=== PATIENT | male | born 1975 ===

== ENCOUNTER 2016-07-23 02:08 | Emergency (ER) | payer SELFPAY ==
[2016-07-23 02:19] VITALS: BP 128/82; PULSE 106; RESP 16; TEMP 99.4; O2SAT 98
[2016-07-23] MEDS ORDERED: Sodium Chloride 0.9% 1,000 ML IV STA (02:44)
--- NOTE | 2016-07-23 03:05 | CT ---
EXAM: CT Head Without Intravenous Contrast. CLINICAL HISTORY: 41 years old, male; Pain; Headache TECHNIQUE: Axial computed tomography images of the head/brain without intravenous contrast. This CT exam was performed using one or more of the following dose reduction techniques: automated exposure control, adjustment of the mA and/or kV according to patient size, and/or use of iterative reconstruction technique. Coronal and sagittal reformatted images were created and reviewed. COMPARISON: No relevant prior studies available. FINDINGS: Brain: No intracranial hemorrhage. No mass. No definite edema. Ventricles: No hydrocephalus. Bones/joints: No acute fracture. Soft tissues: Unremarkable. Sinuses: Scattered minimal mucosal thickening. Mastoid air cells: No mastoid effusion. Orbits: Unremarkable as visualized. IMPRESSION: 1. No acute intracranial abnormality. 2. Incidental/non-acute findings are described above.
[2016-07-23 03:23] LABS: BASO % 0.2 % (0.0-2.0); EOS % 0.1 % (0.0-4.0); HEMATOCRIT 40.7 % (35.0-51.0); LYMPH # 0.9 K/uL (1.0-4.3); LYMPH % 7.9 % (20.0-40.0); MEAN CELL VOLUME 84.2 fl (80.0-94.0); MEAN CORPUSCULAR HEMOGLOBIN 29.7 pg (27.0-31.0); MEAN CORPUSCULAR HGB CONC 35.2 g/dL (33.0-37.0); MEAN PLATELET VOLUME 8.3 fl (7.2-11.7); MONO # 0.9 K/uL (0.0-0.8); MONO % 7.9 % (0.0-10.0); NEUT # 9.1 K/uL (1.8-7.0); NEUT % 83.9 % (50.0-75.0); PLATELET COUNT 255 K/uL (130-400); RED CELL DISTRIBUTION WIDTH 12.6 % (11.5-14.5); WHITE BLOOD COUNT 10.9 K/uL (4.8-10.8)
[2016-07-23 03:26] LABS: CHLORIDE 100 mmol/L (98-107); POTASSIUM 4.3 MMOL/L (3.6-5.0); SODIUM 137 mmol/l (132-148)
[2016-07-23 03:28] LABS: ALB/GLOB RATIO 1.1 (1.0-2.1); ALKALINE PHOSPHATASE 94 U/L (38-126); ALT/SGPT 34 U/L (21-72); AST/SGOT 20 U/L (17-59); BILIRUBIN,TOTAL 0.8 mg/dl (0.2-1.3); BLOOD UREA NITROGEN 12 mg/dl (9-20); CARBON DIOXIDE 27 mmol/L (22-30); GFR AFRICAN-AMERICAN > 60; TOTAL PROTEIN 8.2 G/DL (6.3-8.2)
[2016-07-23 03:29] LABS: CALCIUM 9.2 mg/dL (8.4-10.2); GLUCOSE,RANDOM 113 mg/dL (75-110)
--- NOTE | 2016-07-23 03:44 | ED PDOC ---
HPI: Headache Time Seen by Provider: 07/23/16 02:17 Chief Complaint (Nursing): Dizziness/Lightheaded Chief Complaint (Provider): headache History Per: Patient History/Exam Limitations: no limitations Current Symptoms Are (Timing): Still Present Severity: Moderate Preceeding Symptoms: denies: Visual Disturbances, Known Migraine Symptoms Associated Symptoms: Nausea, Vomiting. denies: Photophobia, Blurred Vision, Extremity Weakness Additional History Per: Patient Additional Complaint(s): 41 m with no medical problems c/o headache radiating to back of neck x3. no fever/vomiting/diarrhea. no history of headahce. no neck pain no fever.s Past Medical History Reviewed: Historical Data, Nursing Documentation, Vital Signs Vital Signs: Last Vital Signs Temp 99.4 F 07/23/16 02:16 Pulse 106 H 07/23/16 02:16 Resp 16 07/23/16 02:16 BP 128/82 07/23/16 02:16 Pulse Ox 98 07/23/16 02:16 - Medical History PMH: No Chronic Diseases - Surgical History Surgical History: No Surg Hx - Family History Family History: States: No Known Family Hx - Social History Current smoker - smoking cessation education provided: No Ex-Smoker (has not smoked in the last 12 months): Yes Alcohol: Occasional Drugs: Denies - Home Medications Home Medications: Ambulatory Orders Medication Instructions Recorded Ibuprofen [Motrin] 600 mg PO Q6H PRN #20 tab 07/23/16 - Allergies Allergies/Adverse Reactions: Allergies Allergy/AdvReac Type Severity Reaction Status Date / Time No Known Allergies Allergy Verified 07/23/16 02:19 Review of Systems ROS Statement: Except As Marked, All Systems Reviewed And Found Negative Neurological: Positive for: Headache. Negative for: Weakness, Numbness, Incoordination, Change in Speech, Confusion, Seizures, Altered Mental Status, Dizziness Physical Exam - Reviewed Nursing Documentation Reviewed: Yes Vital Signs Reviewed: Yes - Physical Exam Appears: Positive for: Well, Non-toxic, No Acute Distress Head Exam: Positive for: ATRAUMATIC, NORMAL INSPECTION, NORMOCEPHALIC Skin: Positive for: Normal Color, Warm, DRY Eye Exam: Positive for: EOMI, Normal appearance, PERRL ENT: Positive for: Normal ENT Inspection Neck: Positive for: Normal, Painless ROM, Supple. Negative for: Limited ROM Cardiovascular/Chest: Positive for: Regular Rate, Rhythm Respiratory: Positive for: CNT, Normal Breath Sounds Gastrointestinal/Abdominal: Positive for: Normal Exam, Bowel Sounds, Soft Back: Positive for: Normal Inspection Extremity: Positive for: Normal ROM Neurologic/Psych: Positive for: Alert, nursing assoc II-XII, Oriented, Gait (stable). Negative for: Motor/Sensory Deficits, Aphasia, Facial Droop - Laboratory Results Result Diagrams: 07/23/16 03:13 07/23/16 03:13 - ECG O2 Sat by Pulse Oximetry: 98 Medical Decision Making Medical Decision Making: headache no fever or associated symptoms CT head- no acute findings labs reviewed pt improved w toradol. reglan given as well. iv fluids and zofran as well pt states headache resolved. recommended that pt follow up with neurology for further workup for headaches. Disposition - Clinical Impression Clinical Impression: Headache - Patient ED Disposition Is Patient to be Admitted: No Counseled Patient/Family Regarding: Studies Performed, Diagnosis, Need For Followup - Disposition Referrals: Mark Cameron MD [Medical Doctor] - Disposition: Routine/Home Disposition Time: 04:05 Condition: GOOD Additional Instructions: follow up with your primary doctor in 1-2 days. referral also provided for neurologist for further testing. return to the ED with any worsening or concerning symptos. Prescriptions: Ibuprofen [Motrin] 600 mg PO Q6H PRN #20 tab PRN Reason: Pain, Moderate (4-7) Instructions: Acute Headache (ED) Print Language: [place]
[2016-07-23 05:41] LABS: BASOPHIL 1 % (0-2); NEUTROPHIL 76 % (42-75); REACTIVE LYMPHOCYTES 2 % (0-0); TOTAL CELLS COUNTED 100
[2016-07-23 05:42] LABS: LARGE PLATELETS PRESENT
== END 2016-07-23 05:14 | disposition home or self-care (01) ==
LOC: H.ER 02:08
DX: R51 Headache (principal); R42 Dizziness and giddiness; Z87.891 Personal history of nicotine dependence
CPT/HCPCS: 70450; 80053; 85025; 96374; 99282; J1885; J2405; J2765; J7040

== ENCOUNTER 2016-08-14 09:14 | Emergency (ER) | payer OTHER ==
[2016-08-14] MEDS ORDERED: Sodium Chloride 0.9% 1,000 ML IV STA (10:00)
--- NOTE | 2016-08-14 10:07 | ED PDOC ---
HPI: Headache Time Seen by Provider: 08/14/16 09:34 Chief Complaint (Nursing): Dizziness/Lightheaded Chief Complaint (Provider): Dizziness/Lightheaded History Per: Patient History/Exam Limitations: no limitations Onset/Duration Of Symptoms: Days Current Symptoms Are (Timing): Still Present Severity: Moderate Quality: "Pain" Preceeding Symptoms: None Additional Complaint(s): Patient is a 41 year old male who presents to ED for evaluation of headache with dizziness and vomiting for 4 days. Patient states similar symptoms intermittently for 1 month, evaluated in ED and prescribed Meclazine. Patient also notes that he suffered a head injury 3 months ago. Last took Motrin yesterday, no medication today. Patient notes symptoms worsened with walking and head movement Past Medical History Reviewed: Historical Data, Nursing Documentation, Vital Signs Vital Signs: Last Vital Signs Temp 98 F 08/14/16 09:40 Pulse 65 08/14/16 09:40 Resp 18 08/14/16 09:40 BP 116/79 08/14/16 09:40 Pulse Ox 99 08/14/16 09:40 - Medical History PMH: No Chronic Diseases - Surgical History Surgical History: Appendectomy - Family History Family History: States: No Known Family Hx - Living Arrangements Living Arrangements: With Family - Home Medications Home Medications: Ambulatory Orders Medication Instructions Recorded Ibuprofen [Motrin] 600 mg PO Q6H PRN #20 tab 07/23/16 Ibuprofen [Motrin] 600 mg PO Q6 PRN #20 tab 08/14/16 Meclizine [Meclizine*] 25 mg PO Q6 PRN #15 tab 08/14/16 - Allergies Allergies/Adverse Reactions: Allergies Allergy/AdvReac Type Severity Reaction Status Date / Time No Known Allergies Allergy Verified 08/14/16 09:39 Review of Systems ROS Statement: Except As Marked, All Systems Reviewed And Found Negative Constitutional: Negative for: Fever, Chills, Weakness Eyes: Negative for: Vision Change Cardiovascular: Negative for: Chest Pain Respiratory: Negative for: Shortness of Breath Gastrointestinal: Positive for: Nausea, Vomiting. Negative for: Abdominal Pain Musculoskeletal: Negative for: Neck Pain Neurological: Positive for: Headache, Dizziness. Negative for: Weakness, Numbness, Change in Speech Physical Exam - Reviewed Nursing Documentation Reviewed: Yes Vital Signs Reviewed: Yes - Physical Exam Appears: Positive for: Non-toxic, No Acute Distress Head Exam: Positive for: ATRAUMATIC Skin: Positive for: Normal Color, Warm Eye Exam: Positive for: Normal appearance, EOMI, PERRL. Negative for: Nystagmus Neck: Positive for: Normal, Painless ROM Cardiovascular/Chest: Positive for: Regular Rate, Rhythm. Negative for: Murmur Respiratory: Positive for: Normal Breath Sounds. Negative for: Respiratory Distress Back: Positive for: Normal Inspection Extremity: Positive for: Normal ROM. Negative for: Pedal Edema, Calf Tenderness Neurologic/Psych: Positive for: Alert, Oriented, Gait (steady) - Laboratory Results Result Diagrams: 08/14/16 11:18 08/14/16 11:18 - ECG O2 Sat by Pulse Oximetry: 99 (RA) Pulse Ox Interpretation: Normal - Progress Re-evaluation Time: 13:00 Condition: Re-examined, Improved Medical Decision Making Medical Decision Making: Time: 954 Initial impression: Concussion syndrome, Migraine, Tension headache, Vertigo associated with a headache Initial plan: -- CT-head -- EKG -- BMP -- CBC -- Troponin -- NSF, Reglan, Toradol and Antivert Time: 1200 CT head results reviewed Impression: Normal CT of the head Scribe Attestation: Documented by Latesha Rodriguez acting as a scribe for Thomas Vaughan MD MD Scribe Attestation: All medical record entries made by the Scribe were at my direction and personally dictated by me. I have reviewed the chart and agree that the record accurately reflects my personal performance of the history, physical exam, medical decision making, and the department course for this patient. I have also personally directed, reviewed, and agree with the discharge instructions and disposition. Disposition - Clinical Impression Clinical Impression: Dizziness, Headache - Patient ED Disposition Is Patient to be Admitted: No Doctor Will See Patient In The: Office Counseled Patient/Family Regarding: Studies Performed, Diagnosis, Need For Followup - Disposition Referrals: [facility] [Outside] Disposition: Routine/Home Disposition Time: 13:29 Condition: GOOD Additional Instructions: Follow up with your PCP in 2-3 days. Prescriptions: Meclizine [Meclizine*] 25 mg PO Q6 PRN #15 tab PRN Reason: Dizziness Ibuprofen [Motrin] 600 mg PO Q6 PRN #20 tab PRN Reason: Headache Instructions: Dizziness (ED), General Headache (ED)
--- NOTE | 2016-08-14 10:46 | CT ---
PROCEDURE: CT HEAD WITHOUT CONTRAST. HISTORY: headache COMPARISON: 07/23/2016 TECHNIQUE: Axial computed tomography images were obtained through the head/brain without intravenous contrast. Radiation dose: Total exam DLP = 875 mGy-cm. This CT exam was performed using one or more of the following dose reduction techniques: Automated exposure control, adjustment of the mA and/or kV according to patient size, and/or use of iterative reconstruction technique. FINDINGS: HEMORRHAGE: No intracranial hemorrhage. BRAIN: No mass effect or edema. No atrophy or chronic microvascular ischemic changes. VENTRICLES: Unremarkable. No hydrocephalus. CALVARIUM: Unremarkable. PARANASAL SINUSES: Unremarkable as visualized. No significant inflammatory changes. MASTOID AIR CELLS: Unremarkable as visualized. No inflammatory changes. OTHER FINDINGS: None. IMPRESSION: Normal CT of the Head.
[2016-08-14 11:27] LABS: BASO % 0.6 % (0.0-2.0); EOS # 0.2 K/uL (0.0-0.7); EOS % 3.2 % (0.0-4.0); HEMATOCRIT 40.1 % (35.0-51.0); LYMPH # 1.7 K/uL (1.0-4.3); LYMPH % 28.7 % (20.0-40.0); MEAN CORPUSCULAR HGB CONC 34.1 g/dL (33.0-37.0); MEAN PLATELET VOLUME 9.1 fl (7.2-11.7); MONO # 0.5 K/uL (0.0-0.8); MONO % 8.5 % (0.0-10.0); NEUT # 3.5 K/uL (1.8-7.0); NRBC % 0.1 % (0.0-0.0); RED CELL DISTRIBUTION WIDTH 12.6 % (11.5-14.5)
[2016-08-14 11:55] LABS: CHLORIDE 102 mmol/L (98-107); SODIUM 140 mmol/l (132-148)
[2016-08-14 11:56] LABS: POTASSIUM 4.3 MMOL/L (3.6-5.0)
[2016-08-14 11:58] LABS: CARBON DIOXIDE 26 mmol/L (22-30); GFR AFRICAN-AMERICAN > 60
[2016-08-14 11:59] LABS: BLOOD UREA NITROGEN 16 mg/dl (9-20); CALCIUM 9.3 mg/dL (8.4-10.2); GLUCOSE,RANDOM 94 mg/dL (75-110)
[2016-08-14 13:32] VITALS: O2SAT 99
[2016-08-14 13:53] VITALS: BP 128/78; PULSE 78; RESP 19; TEMP 97.8
--- NOTE | 2016-08-14 19:02 | CARD ---
APPROVED REPORT EKG Measurement Heart [id number] [id number] <Conclusion> Sinus bradycardia Incomplete right bundle branch block Borderline ECG
== END 2016-08-14 13:53 | disposition home or self-care (01) ==
LOC: H.ER 09:14
DX: R42 Dizziness and giddiness (principal); R51 Headache; R11.10 Vomiting, unspecified

== ENCOUNTER 2017-07-30 10:40 | Emergency (ER) | payer OTHER, SELFPAY ==
[2017-07-30 11:28] VITALS: BP 127/86; PULSE 74; RESP 18; TEMP 98.2; O2SAT 99
[2017-07-30] MEDS ORDERED: Tdap Vaccine 0.5 ml Vial (10-64 yrs) IM ONE ×2 (12:31→12:35)
--- NOTE | 2017-07-30 12:33 | ED PDOC ---
Upper Extremity Pain/Injury Time Seen by Provider: 07/30/17 12:13 Chief Complaint (Nursing): Finger,Hand,&Wrist Chief Complaint (Provider): Finger injury History Per: Patient History/Exam Limitations: no limitations Onset/Duration Of Symptoms: Hrs (x1) Current Symptoms Are (Timing): Still Present Additional Complaint(s): 42 year old right hand dominant male presents to the Emergency Department complaining of a left finger injury, sustained 1 hour prior to arrival. Patient states he accidentally jammed his finger in a door. Tetanus is not up to date. Patient denies taking any medications for pain relief prior to arrival. He denies any numbness or tingling to affected area. PMD: None Past Medical History Reviewed: Historical Data, Nursing Documentation, Vital Signs Vital Signs: Last Vital Signs Temp 98.2 F 07/30/17 11:28 Pulse 74 07/30/17 11:28 Resp 18 07/30/17 11:28 BP 127/86 07/30/17 11:28 Pulse Ox 99 07/30/17 11:28 - Medical History PMH: No Chronic Diseases - Surgical History Surgical History: Appendectomy - Family History Family History: States: No Known Family Hx - Living Arrangements Living Arrangements: With Family - Social History Current smoker - smoking cessation education provided: No Alcohol: None Drugs: Denies - Immunization History Hx Tetanus Toxoid Vaccination: No (not sure of last booster) - Home Medications Home Medications: Ambulatory Orders Medication Instructions Recorded Ibuprofen [Motrin] 600 mg PO Q6H PRN #20 tab 07/23/16 Ibuprofen [Motrin] 600 mg PO Q6 PRN #20 tab 08/14/16 Meclizine [Meclizine*] 25 mg PO Q6 PRN #15 tab 08/14/16 Ibuprofen [Motrin] 600 mg PO Q6 PRN #15 tab 07/30/17 - Allergies Allergies/Adverse Reactions: Allergies Allergy/AdvReac Type Severity Reaction Status Date / Time No Known Allergies Allergy Verified 08/14/16 09:39 Review of Systems ROS Statement: Except As Marked, All Systems Reviewed And Found Negative Musculoskeletal: Positive for: Other (injury to left index finger) Physical Exam - Reviewed Nursing Documentation Reviewed: Yes Vital Signs Reviewed: Yes - Physical Exam Appears: Positive for: Well, Non-toxic, No Acute Distress Head Exam: Positive for: ATRAUMATIC, NORMAL INSPECTION, NORMOCEPHALIC Skin: Positive for: Normal Color. Negative for: Rash Eye Exam: Positive for: Normal appearance Extremity: Positive for: Other (Skin avulsion noted to left 2nd digit, no active bleeding, slight ecchymosis noted to proximal fingernail, no diffuse subungual hematoma, fingernail intact, full rom of affected digit, normal distal sensation) Neurologic/Psych: Positive for: Alert, Oriented - ECG O2 Sat by Pulse Oximetry: 99 (RA) Pulse Ox Interpretation: Normal - Other Rad Left hand x-ray X-Ray: Interpreted by Me, Viewed By Me X-Ray Interpretation: no fx, no dis Medical Decision Making Medical Decision Making: Initial Impression: 42 y/o with left index finger injury Time: 12:31 Plan: Motrin 600 mg PO Tetanus booster IM X-ray of left 2nd digit Patient is aware of x-ray results, all questions answered. Procedure Note: Wound was cleansed with normal saline, non-viable superficial skin layer was excised, wound cleansed further with saline and betadine. Bacitracin and bandage applied. N/V intact s/p placement. Procedure was tolerated well by patient, no complications. Patient was referred to clinic and hand consumer lending manager for follow up. Rx motrin. Advised ice and elevation. Scribe Attestation: Documented by Cheryl Stiles, acting as a scribe for Diya Barraza PA-C Provider Scribe Attestation: All medical record entries made by the Scribe were at my direction and personally dictated by me. I have reviewed the chart and agree that the record accurately reflects my personal performance of the history, physical exam, medical decision making, and the department course for this patient. I have also personally directed, reviewed, and agree with the discharge instructions and disposition. Disposition - Clinical Impression Clinical Impression: Crush injury to finger, Skin avulsion, Requires a booster tetanus Counseled Patient/Family Regarding: Studies Performed, Diagnosis, Need For Followup, Rx Given - Disposition Referrals: [facility] [Outside] Saima Medley MD [Staff Provider] - Disposition: Routine/Home Disposition Time: 13:17 Condition: STABLE Additional Instructions: Ice and elevate affected area. Take rx meds as directed as needed for pain. Follow up with clinic or with hand specialist in 2-3 days. Prescriptions: Ibuprofen [Motrin] 600 mg PO Q6 PRN #15 tab PRN Reason: Pain, Moderate (4-7) Instructions: Crush Injury, Common Finger Injuries (DC), Diphtheria and Tetanus Toxoids, and Acellular Pertussis Vaccine Forms: [employer] (Frisian) Print Language: SWEDISH
--- NOTE | 2017-07-30 13:28 | RAD ---
PROCEDURE: Left Hand Radiographs. HISTORY: trauma COMPARISON: None. FINDINGS: BONES: No fracture. JOINTS: Normal. No osteoarthritic changes. SOFT TISSUES: Dorsal soft tissue laceration 2nd digit bordering the nail bed noted. No cortical interruption no radiopaque foreign body noted OTHER FINDINGS: None. IMPRESSION: No fracture or cortical interruption. No radiopaque foreign body. Dorsal 2nd digit soft tissue laceration
== END 2017-07-30 13:21 | disposition home or self-care (01) ==
LOC: H.ER 10:40
DX: S61.201A Unspecified open wound of left index finger without damage to nail, initial encounter (principal); S67.10XA Crushing injury of unspecified finger(s), initial encounter; W23.0XXA Caught, crushed, jammed, or pinched between moving objects, initial encounter; Z23 Encounter for immunization